=== PATIENT | male | born 1965 | race Caucasian/White ===

== ENCOUNTER 2018-08-25 10:14 | Day surgery (SDC) | payer BC, MEDICARE ==
[2018-08-22 09:59] VITALS: BMI 34.0
--- NOTE | 2018-08-25 11:08 | RAD ---
XR Cerv Sp Ap Lat STANDARD History: Pain. Cervical radiculopathy. Comparison: None Findings: ACDF hardware at C5-C7. There is partial backing out of the left C7 screw. Adequate osseous incorporation of the discectomy spacers. Mild circumferential disc osteophyte comple x at C4/C5. Graft no significant listhesis. No translation with flexion or extension. Impression: 1. Partial backing out of the left C7 screw with perihardware lucency. 2. Mild degenerative disc disease at C5/C6 without significant translation with flexion or extension.
--- NOTE | 2018-08-25 14:08 | MRI ---
CERVICAL SPINE MRI WITH AND WITHOUT CONTRAST: Date: 08/25/18 COMPARISON: None. HISTORY: Cervical radiculopathy, cervical pain, left neck and shoulder pain, history of cervical spin e surgery. TECHNIQUE: Multiplanar multisequence MR imaging of the cervical spine provided without contrast. FINDINGS: Sagittal STIR imaging demonstrates osseous edema centered at the facet joint on the left C4-5. Anteri or diskectomy and fusion hardware is present at C5-6/C6-7. No significant anterolisthesis or retrolisthesis is noted within the cervical spine. There is degenerative change at the atlantoaxial interspace. C2-3: No significant central canal or neural foraminal stenosis. C3-4: Minimal disc bulge with mild effacement of the ventral thecal sac and mild central canal stenos is. Bilateral facet and uncovertebral osteophyte formation with mild bilateral neural foraminal stenosis. C4-5: Minimal disc bulge with mild central canal stenosis. Bilateral facet and uncovertebral osteophy te formation, left greater than right. Moderate left and mild right neural foraminal stenosis. C5-6: No significant central canal or neural foraminal stenosis. C6-7: No significant central canal or neural foraminal stenosis. C7-T1: Mild bilateral facet hypertrophy with mild bilateral neural foraminal stenosis. No significant central canal stenosis. There is no focal area of abnormal signal intensity identified within the cervical cord. The postcontrast imaging demonstrates mild enhancement adjacent to the left facet joint at the C4-5 l evel. There is no abnormal enhancement involving the contents of the thecal sac or the intervertebral discs. IMPRESSION: Postoperative and degenerative changes within the cervical spine as detailed above. Findings include edematous change and enhancement centered at the left C4-5 facet joint, likely on the basis of inflammatory change. Transcribed Date/Time: 08/25/2018 2:21 PM
--- NOTE | 2018-08-25 14:32 | MRI ---
MRI LUMBAR SPINE WITH AND WITHOUT CONTRAST: DATE: 08/25/2018 HISTORY: 52-year-old male with "lumbar radiculopathy, lumbar stenosis without neurogenic claudication, and low back pain" Dr. Coelho notified Dr. Hernandez of the enhancement in the subarachnoid space by [place] [employer] secure [employer] I messaging at 1:45 PM on 08/25/2018; then by conventional text message (with abbreviated patient name bladder is) at 2:18 PM on 08/25/2018. COMPARISON: None available TECHNIQUE: Multiple sequences obtained in axial and sagittal planes, pre and post IV injection of gadolinium-bas ed contrast agent. FINDINGS: Vertebral body heights are maintained. No major spondylolisthesis. No major signal abnormality or abn ormal enhancement within the intervertebral disc spaces. Conus medullaris terminates at L1. Developmentally small caliber spinal canal due to congenitally short pedicles, exacerbated by lumbar spondylosis as described below. T12-L1:No additional findings. L1-2:Shallow, broad-based central and bilateral paracentral disc protrusion effaces ventral aspect of thecal sac. Mild to moderate central spinal canal stenosis. Posterior epidural fat pad. Moderate to severe thecal sac stenosis. Mild bilateral neural foraminal stenosis. L2-3:Disc space maintained. Mild to moderate bilateral neural foraminal stenosis. Mild to moderate ce ntral spinal canal stenosis. Moderate thecal sac stenosis. L3-4:Disc desiccation. Diffuse disc bulge. No high-grade disc space narrowing. Diffuse disc bulge plu s shallow, broad-based central and bilateral paracentral disc protrusion with posterior midline annular fissure. No enhancement of disc space. Bilateral moderate neural foraminal stenosis. Bilatera l moderate degenerative facet hypertrophy. Moderate to severe central and thecal sac stenosis. In addition to these degenerative changes, there is mild bone marrow edema of the bilateral pedicles. Bilateral facet joint effusions. Enhancement of perivertebral soft tissues around the bilateral facet complexes. Furthermore, there is abnormal intrathecal, subarachnoid enhancement of all of the cauda equina nerve roots at this level, but especially 2 ventral, right and left cauda equina nerve roots within the thecal sac. These to nerve root superior thickened. Enhancement of dural lining of sac. L4-5:Mild-moderate disc space narrowing. Diffuse disc bulge. Moderate right neural foraminal stenosis . Severe left neural foraminal stenosis. Lateral recess stenosis bilaterally. Mild central spinal canal stenosis. Mild to moderate thecal sac stenosis. L5-S1:Conjoined nerve root on one side. No central stenosis. Moderate disc space narrowing. Modic typ e II endplate changes. Prominent diffuse disc bulge. Moderate right neural foraminal stenosis. Severe left neural foraminal stenosis. IMPRESSION: 1) evidence for a focal arachnoiditis centered at the L3-4 level, with enhancement of cauda equina ne rve roots within the thecal sac. Infectious versus inflammatory. Etiology uncertain. Has there been recent needle injection in this vicinity? 2) developmentally small caliber spinal canal exacerbated by lumbar spondylosis. 3) multilevel high-grade neural foraminal stenosis, including severe on the left at L4-5 and L5-S1. 4) multilevel high-grade central spinal canal stenosis.
--- NOTE | 2018-08-25 15:59 | RAD ---
3 views lumbar spine: 08/25/2018 COMPARISON: None HISTORY: Radiculopathy, back pain, stenosis FINDINGS: Lateral neutral, flexion, and extension imaging provided. Neutral lateral examination demonstrates disc space narrowing with degenerative endplate change at L4 -5 and L5-S1. There is anterior osteophyte formation at L5-S1 and mild posterior osteophyte formation at L4-5. There is L4-5 and L5-S1 facet hypertrophy. There is an IVC filter present. Flexion imaging demonstrates no anterolisthesis or retrolisthesis. There is no anterolisthesis or ret rolisthesis on the extension imaging. IMPRESSION: Lower lumbar spine degenerative change.
== END 2018-08-25 16:08 | disposition home or self-care (01) ==
LOC: SDC/OP 10:14 → EDSTATUS 08-26 12:00
PROVIDERS: ATTEND Neurological Surgery
DX: M48.061 Spinal stenosis, lumbar region without neurogenic claudication (principal); M51.16 Intervertebral disc disorders with radiculopathy, lumbar region; M47.26 Other spondylosis with radiculopathy, lumbar region; M48.07 Spinal stenosis, lumbosacral region; M47.817 Spondylosis without myelopathy or radiculopathy, lumbosacral region; M48.02 Spinal stenosis, cervical region; M48.03 Spinal stenosis, cervicothoracic region; M50.122 Cervical disc disorder at C5-C6 level with radiculopathy; M47.22 Other spondylosis with radiculopathy, cervical region; J45.909 Unspecified asthma, uncomplicated; E78.5 Hyperlipidemia, unspecified; I10 Essential (primary) hypertension; M19.90 Unspecified osteoarthritis, unspecified site; Z98.890 Other specified postprocedural states; Z88.1 Allergy status to other antibiotic agents; Z79.01 Long term (current) use of anticoagulants; Z79.899 Other long term (current) drug therapy
CPT/HCPCS: 72040; 72100; 72156; 72158

== ENCOUNTER 2018-09-26 06:56 | Outpatient (CLI) | payer BC, MEDICARE ==
[2018-09-26 14:41] LABS: Hemoglobin 15.6 g/dL (14.0-18.0); Mean Corpuscular HGB CONC 33.3 g/dL (32.0-36.0); Mean Corpuscular Hemoglobin 28.1 pg (27.0-31.0); Mean Corpuscular Volume 84.4 fL (78.0-98.0); Mean Platelet Volume 7.8 fL (7.4-10.4); Platelet Count 177 thou/uL (130-400); RBC Distribution Width 12.9 % (11.5-14.5); Red Blood Cell (RBC) Count 5.54 mill/uL (4.70-6.10); White Blood Cell (WBC) Count 7.2 thou/uL (4.8-10.8)
[2018-09-26 14:48] LABS: INR-International Normal Ratio 1.5; PTT 33.9 SEC (22.9-36.1); Prothrombin Time 17.8 SEC (12.0-14.7)
[2018-09-26 15:06] LABS: Anion Gap 14 mmol/L (10-20); BUN (Urea Nitrogen) 8 mg/dL (8.9-20.6); Calc. Creatinine Clearance 0 mL/min (70-130); Calcium 9.1 mg/dL (7.8-10.44); Carbon Dioxide 28 mmol/L (22-29); Chloride 99 mmol/L (98-107); Estimated GFR-MDRD 78; Glucose 79 mg/dL (70-105); Potassium 3.6 mmol/L (3.5-5.1); Sodium 137 mmol/L (136-145)
== END 2018-09-26 06:57 | disposition home or self-care (01) ==
LOC: LABBT 06:56
PROVIDERS: ATTEND Neurological Surgery
DX: Z01.812 Encounter for preprocedural laboratory examination (principal); M48.061 Spinal stenosis, lumbar region without neurogenic claudication
CPT/HCPCS: 80048; 85027; 85610; 85730

== ENCOUNTER 2018-10-02 10:39 | Inpatient (IN) | payer BC, MEDICARE ==
[2018-09-26 13:19] VITALS: BMI 34.4
--- NOTE | 2018-10-01 17:09 | HP ---
HISTORY OF PRESENT ILLNESS: Mr. Douglas is a 52-year-old gentleman, who is back in our office after imaging. He continues to be debilitated by back and leg pains that are terrible with standing or extending the low back. There is pain mostly in the lower lumbar distribution, but there is some thigh pain as well. There is no severe weakness or numbness, but he cannot stand very long without having been bent forward. PAST MEDICAL HISTORY: Arthritis, asthma, allergies, history of blood clots, hyperlipidemia, chronic pain, genetic disease, headaches, and hypertension. ALLERGIES: FLUOROQUINOLONES. REVIEW OF SYSTEMS: A 10-point review of systems has been completed and negative other than stated in the above HPI. PAST SURGICAL HISTORY: Kidney stents, knee surgery, sinus surgery, lumbar surgery, cervical fusion, carpal tunnel, left knee, and right ankle. FAMILY HISTORY: Mother is alive. Siblings are alive. SOCIAL HISTORY: The patient is a nonsmoker. Denies other tobacco use. No alcohol or drug use. He is sexually active. PHYSICAL EXAMINATION: CONSTITUTIONAL: The patient is alert and oriented x3. Appears nontoxic. NECK: Soft, supple. No masses are noted. Range of motion is intact, nonpainful. NEUROLOGIC: Awake, alert, oriented x3. Memory, attention, fund of knowledge are normal. Cranial nerves grossly intact. Upper extremities 5/5 bilateral strength in deltoids, triceps, wrist extension, finger extension, finger intrinsics, left, 4+/5 biceps. Sensation decreased left middle finger compared to right. Reflexes symmetric. Spurling is negative. Lower extremities; 5/5 bilateral knee flexion, knee extension, dorsiflexion, plantar flexion, EHL, left. 4/+5 strength in hip flexion, bilateral L4/L5 radiculopathy. Negative single leg raise. Hip rotation normal bilaterally. Tender to palpate lumbar spine. Deep tendon reflexes 2+. No Babinski. No clonus. Gait and station, normal. IMAGING STUDIES: MRI, some cervical stenosis T3-T4, T4-T5 as well as prior fusion, moderate. Lumbar spine L1 to L2-L3 and severe L3-L4 stenosis enhancing nerve roots from the level down. Some scar tissue at L5-S1 foramina. ASSESSMENT AND PLAN: Lumbar stenosis, neurogenic claudication, lumbar radiculopathy. Dr. Hernandez has offered surgery, laminectomy L1 through L3, also left L5-S1 foramina for scar tissue. The patient states he understands the risks and is willing to proceed with surgery. Job ID: [id number]
[2018-10-02 12:06] LABS: INR-International Normal Ratio 0.9; PTT 27.4 SEC (22.9-36.1); Prothrombin Time 11.7 SEC (12.0-14.7)
[2018-10-02] MEDS ORDERED: Bupivacaine HCl 0.5%/Epinephrine 1:200,000/PF 30 ml Vial ONE (12:14)
[2018-10-02] MEDS ORDERED: Thrombin 5000 UNITS/5 ML VIAL ONE (12:15)
[2018-10-02] MEDS ORDERED: Sodium Chloride 0.9% 20 ML ONE (12:15)
[2018-10-02] MEDS ORDERED: Fentanyl 100 MCG/2 ML VIAL ONE ×2 (12:20→16:18)
[2018-10-02] MEDS ORDERED: Famotidine/PF 20 mg/2ml Vial ONE (12:20)
[2018-10-02] MEDS ORDERED: SUGAMMADEX SODIUM 500 MG/5 ML VIAL ONE (12:37)
[2018-10-02] MEDS ORDERED: Metoclopramide HCl 10 MG/2 ML VIAL ONE (13:55)
[2018-10-02] MEDS ORDERED: Ondansetron PF 4 MG/2 ML Vial ONE (13:55)
[2018-10-02] MEDS ORDERED: Dexamethasone 20 MG/5 ML VIAL ONE (13:55)
[2018-10-02] MEDS ORDERED: Lidocaine 1% PF 5 ML VIAL ONE (13:55)
[2018-10-02] MEDS ORDERED: Glycopyrrolate 0.2 MG/ML 5 ML SYRINGE ONE (13:55)
[2018-10-02] MEDS ORDERED: PROPOFOL 200 MG/20 ML VIAL ONE (13:55)
[2018-10-02] MEDS ORDERED: Ketorolac Tromethamine 30 MG/ML VIAL ONE (13:55)
[2018-10-02] MEDS ORDERED: Rocuronium Bromide 10 MG/ML (10ML VIAL) ONE (13:55)
[2018-10-02] MEDS ORDERED: Promethazine HCl 25 MG/ML VIAL IM PRN ×2 (17:12→17:30)
[2018-10-02] MEDS ORDERED: Milk Of Magnesia 30 ML UDCUP PO PRN (17:12)
[2018-10-02] MEDS ORDERED: diphenhydrAMINE 25 MG CAP PO PRN (17:12)
[2018-10-02] MEDS ORDERED: Promethazine 25 MG TAB PO PRN (17:12)
[2018-10-02] MEDS ORDERED: Bisacodyl 10 MG SUPP PR PRN (17:12)
[2018-10-02] MEDS ORDERED: Ondansetron PF 4 MG/2 ML Vial IVP PRN (17:12)
[2018-10-02] MEDS ORDERED: Morphine 4 MG/ML VIAL SLOW IVP PRN ×2 (17:12)
[2018-10-02] MEDS ORDERED: Acetaminophen/Codeine 30-300mg Tablet PO PRN (17:12)
[2018-10-02] MEDS ORDERED: Tamsulosin HCl 0.4 MG CAP PO PRN (17:12)
[2018-10-02] MEDS ORDERED: diphenhydrAMINE 50 MG/ML VIAL IVP PRN (17:12)
[2018-10-02] MEDS ORDERED: Acetaminophen 325 MG TAB PO PRN (17:12)
[2018-10-02] MEDS ORDERED: Diazepam 2 MG TAB PO PRN (17:20)
[2018-10-02] MEDS ORDERED: Famotidine 20 MG TAB PO PRN (17:20)
[2018-10-02] MEDS ORDERED: CEFAZOLIN 1 GM VIAL ONE ×2 (17:22→17:23)
[2018-10-02] MEDS ORDERED: Meperidine HCl/PF 25 MG/ML VIAL SLOW IVP PRN (17:30)
[2018-10-02] MEDS ORDERED: Promethazine HCl 25 MG/ML VIAL SLOW IVP PRN (17:30)
[2018-10-02] MEDS ORDERED: Ondansetron HCl/PF 4 MG/2 ML Vial IVP PRN (17:30)
[2018-10-02] MEDS ORDERED: PACU-Morphine 4MG/ML VIAL SLOW IVP PRN (17:30)
--- NOTE | 2018-10-02 17:43 | OP ---
DATE OF PROCEDURE: 10/02/2018 HUMAN RESOURCES OPERATIONS COORDINATOR: Mera Sawyer PA-C PREOPERATIVE INDICATION: Multilevel lumbar stenosis with severe neurogenic claudication, prior L5-S1 surgery with lateral recess stenosis and foraminal disease at the lumbosacral interspace. POSTOPERATIVE DIAGNOSES: Multilevel lumbar stenosis with severe neurogenic claudication, prior L5-S1 surgery with lateral recess stenosis and foraminal disease at the lumbosacral interspace. OPERATIVE PROCEDURES: Reopening lumbar incision, laminectomy, medial facetectomy, and foraminotomy at L1-L2, L2-L3, and L3-L4, redo laminectomy, medial facetectomy, foraminotomy, bilateral L5-S1 with operating microscope. PREOPERATIVE MEDICATIONS: Ancef 2 g IV. DRAIN NUMBER: Two. DRAIN TYPE: 10-Syriac Cristopher. DESCRIPTION OF PROCEDURE: The patient was brought to the operating room. General endotracheal anesthesia was induced. The patient was positioned prone on the operating table with the chest and hips supported by gel-filled chest rolls. We took a lateral fluoro radiograph to plan our incision. The lumbar skin was sterilely prepped and draped. We opened with a 10 blade knife and controlled bleeding with bipolar and monopolar cautery. We used monopolar cautery to dissect through subcutaneous tissues and scar tissue to the thoracodorsal fascia. We incised the fascia in the midline and reflected paraspinal muscles off the spinous processes and lamina from L1 through S1. A lateral fluoro radiograph confirmed the levels upon, which we were operating. We then used an Adson rongeur and a high-speed drill to remove the spinous processes and thin the lamina from L1 through L4. Using a Kerrison rongeur, we fashioned a laminectomy down the midline. We widened our laminectomy defect by performing medial facetectomies at each of the interspaces. We performed foraminotomies over the exiting nerve roots. Once a Cheung ball probe could pass through the lateral recess and out the foramen with L1, L2, L3, and L4 nerve roots. Then, we turned our attention to the lumbosacral interspace. Here, we placed a self-retaining retractor and dissected carefully the scar tissue off the lamina of L5 and S1. The operating microscope was brought into the field. Under microscopic magnification using microsurgical techniques, we continued to loosen scar tissue from the undersurface of the lamina. We began with bilaterally attempting partial hemilaminectomy and medial facetectomies, but this would not give us access to the foramina themselves due to the angle of approach. We had to remove the spinous process of L5 in the inferior 75% of the lamina of L5 and the superior portion of the sacrum. With this opening, we could perform medial facetectomies on both sides to ensure the traversing S1 nerve roots were free. We then paid attention to the L5 nerve roots. We carefully performed foraminotomies over these nerve root until a Cheung ball probe could leave the spine with the nerves and no impingement. We irrigated copiously with bacitracin irrigation. We controlled bleeding with gentle bipolar cautery. The patient has factor V Leiden deficiency and would need to be placed on Lovenox postop, so we left two drains in place. One was tunneled superiorly and one inferiorly through separate stab incisions. We applied vancomycin powder at the wound. We closed the wound in anatomical layers over the drains. A sterile dressing was applied. This was a clean case, no contamination. Job ID: [id number]
[2018-10-02] MEDS ORDERED: Promethazine HCl 25 MG/ML VIAL ONE (18:26)
[2018-10-02] MEDS: Sodium Chloride 0.9% 1,000 ML IV SCH (19:11)
[2018-10-02] MEDS: CEFAZOLIN 2 GM in Premix Bag 1 BAG IVPB SCH (20:16)
[2018-10-02] MEDS: Zolpidem Tartrate 5 MG TAB PO SCH (20:17)
[2018-10-02] MEDS: Atorvastatin Calcium 40 MG TAB PO SCH (20:19)
[2018-10-02] MEDS: Acetaminophen/Codeine 30-300mg Tablet PO PRN (21:43)
--- NOTE | 2018-10-02 23:44 | ULT ---
EXAM: Bilateral lower extremity venous Doppler PROVIDED CLINICAL HISTORY: History of DVT FINDINGS: Grayscale and color Doppler sonography with spectral analysis was performed of the common femoral, fe moral, popliteal, posterior tibial, greater saphenous and profunda femoral veins bilaterally. There is intraluminal echogenicity and partial noncompressibility involving the right popliteal and posteri or tibial veins compatible with partially occlusive thrombus. The evaluated venous structures demonstrate an otherwise normal sonographic appearance. IMPRESSION: Positive for deep venous thrombosis involving the right popliteal and posterior tibial veins..
[2018-10-03] MEDS: Acetaminophen/Codeine 30-300mg Tablet PO PRN ×4 (02:40→20:26)
--- NOTE | 2018-10-03 04:01 | CON ---
DATE OF CONSULTATION: REASON FOR CONSULTATION: Medical management. HISTORY OF PRESENT ILLNESS: Mr. 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 Hernandez. The patient underwent successful L1-L2, L2-L3, L3-L4, and L5-S1 laminectomy today. He is seen postoperatively up on the floor. The patient has no complaints at this time. His pain is well controlled. He denies any nausea or vomiting. His appetite is good. Reports no chills or fever symptoms. No chest pain or shortness of breath. REVIEW OF SYSTEMS: A 10-point review of systems performed and is negative. 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 PAST SURGICAL HISTORY: IVC filter placement, L5-S1 laminectomy in the past, cervical fusion, carpal tunnel release, orthopedic procedures on left knee and right ankle. FAMILY HISTORY: Noncontributory. SOCIAL HISTORY: The patient denies any smoking, alcohol, or tobacco abuse. He lives outside of [place] with his . They have grown children and 3 grandchildren. ALLERGIES: FLUOROQUINOLONES. HOME MEDICATIONS: 1. Atorvastatin 40 mg tablet one tablet p.o. at bedtime. 2. Diazepam 2 mg tablet, one tablet p.o. daily. 3. Esomeprazole 40 mg p.o. at bedtime. 4. Lunesta 3 mg tablet, one tablet p.o. at bedtime. 5. Losartan/hydrochlorothiazide 100/25 mg one tablet daily. 6. Coumadin 5 mg tablet as directed. 7. Has been on Lovenox bridge for the past week. PHYSICAL EXAMINATION: VITAL SIGNS: Blood pressure 136/86, pulse is 82, respirations are 18, O2 saturation is 99% on room air, temperature 98.6. GENERAL: The patient is a moderately obese male, resting comfortably in bed, in no acute distress. HEENT: Head is atraumatic and normocephalic. Mucous membranes are moist. NECK: Trachea is midline. No JVD. CV: S1 and S2. Regular rate and rhythm. No appreciable murmurs, rubs, or gallops. LUNGS: Regular respiratory rate and pattern. Clear to auscultation bilaterally. ABDOMEN: Positive bowel sounds. Obese and nontender. EXTREMITIES: No edema. MUSCULOSKELETAL: Lumbar surgical incision is dressed. Drains are in place showing serosanguineous fluid. NEUROLOGIC: Cranial nerves II through XII grossly intact. The patient is nonfocal. LABORATORY DATA: White blood cell count 7.2, hemoglobin 15.6, hematocrit 46.8, platelets 177. INR was 0.9. Sodium 137, potassium 3.6, BUN 8, creatinine 1.01, calcium 9.1. ASSESSMENT: 1. Lumbar stenosis, status post laminectomy, L1-L2, L2- L3, L3-L4, and redo laminectomy of L5-S1 with Dr. Hernandez today. 2. Hypercoagulable state secondary to Factor II and Factor V Leiden deficiency. 3. History of deep venous thrombosis and IVC filter secondary to above. 4. Hypertension. 5. Hyperlipidemia. PLAN: Prophylactic antibiotic coverage per Dr. Hernandez's team. We will continue pain control and antiemetics as needed. Continue home medications including his antihypertensives and statin. The plan is for restarting Lovenox tomorrow morning. We will need to monitor him closely for any sign of thrombosis. Early ambulation and continue physical therapy. We will follow along with you. Thank you for the consultation. Job ID: [id number]
[2018-10-03] MEDS: CEFAZOLIN 2 GM in Premix Bag 1 BAG IVPB SCH ×2 (04:44→19:45)
[2018-10-03] MEDS: Sodium Chloride 0.9% 1,000 ML IV SCH ×2 (07:56→17:59)
[2018-10-03] MEDS: Losartan/Hydrochlorothiazide 100 mg/25 mg Tablet PO SCH (09:12)
[2018-10-03] MEDS: Enoxaparin Sodium 40 MG/0.4 ML SYRINGE SC SCH (09:15)
[2018-10-03] MEDS: tiZANidine HCl 4 MG TAB PO PRN ×2 (10:04→16:14)
--- NOTE | 2018-10-03 11:28 | PDOC.PN ---
- Subjective Encounter Start Date: 10/03/18 Encounter Start Time: 07:20 -: old records requested/rev pt is doing overall fine, Patient seen and examined. No overnight events - Objective MAR Reviewed: Yes Vital Signs & Weight: Vital Signs (12 hours) Temp Pulse Resp BP Pulse Ox 10/03/18 10:40 98.6 F 71 18 121/65 96 10/03/18 07:54 98.3 F 60 16 119/77 96 10/03/18 04:00 98.6 F 62 14 108/67 95 10/02/18 23:38 98 F 79 20 104/50 L 98 Weight Weight 268 lb I&O: 10/02/18 10/03/18 10/04/18 06:59 06:59 06:59 Intake Total 1425 Output Total 1999 Balance -575 Radiology Reviewed by me: Yes (US leg noted) Phys Exam - Physical Examination Constitutional: NAD HEENT: PERRLA, moist MMs, sclera anicteric Neck: no JVD, supple Respiratory: no wheezing, no rales, no rhonchi Cardiovascular: RRR, no significant murmur, no rub Gastrointestinal: soft, non-tender, no distention, positive bowel sounds Musculoskeletal: no edema, pulses present Neurological: non-focal, normal sensation, moves all 4 limbs Lymphatic: no nodes Psychiatric: normal affect, A&O x 3 Skin: no rash, normal turgor Dx/Plan (1) Deep vein thrombosis (DVT) of popliteal vein of right lower extremity Code(s): I82.431 - ACUTE EMBOLISM AND THROMBOSIS OF RIGHT POPLITEAL VEIN Status: Acute (2) S/P lumbar laminectomy Code(s): Z98.890 - OTHER SPECIFIED POSTPROCEDURAL STATES Status: Acute (3) Dyslipidemia Code(s): E78.5 - HYPERLIPIDEMIA, UNSPECIFIED Status: Chronic (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 - HEREDITARY DEFICIENCY OF OTHER CLOTTING FACTORS Status: Chronic (5) Factor V deficiency Code(s): D68.2 - HEREDITARY DEFICIENCY OF OTHER CLOTTING FACTORS Status: Chronic (6) GERD (gastroesophageal reflux disease) Code(s): K21.9 - GASTRO-ESOPHAGEAL REFLUX DISEASE WITHOUT ESOPHAGITIS Status: Chronic (7) Hypertension Code(s): I10 - ESSENTIAL (PRIMARY) HYPERTENSION Status: Chronic (8) Lumbar stenosis with neurogenic claudication Code(s): M48.062 - SPINAL STENOSIS, LUMBAR REGION WITH NEUROGENIC CLAUDICATION Status: Chronic (9) Obesity (BMI 30.0-34.9) Code(s): E66.9 - OBESITY, UNSPECIFIED Status: Chronic (10) Presence of inferior vena cava filter Code(s): Z95.828 - PRESENCE OF OTHER VASCULAR IMPLANTS AND GRAFTS Status: Chronic - Plan cont current plan of care, plan discussed w/ family * pt has distal DVT in right leg, per pt he had DVT in past, he is off lovenox since saturday for surgery, today lovenox low dose started, given lumbar spine surgery will defer to neurosurgeon when they are comfortable with full dose of lovenox and warfarin until INR therapeutic. * medication reviewed as below * symptomatic treatment * discussed with bedside Review of Systems - Review of Systems ENT: negative: Ear Pain, Ear Discharge, Nose Pain, Nose Discharge, Nose Congestion, Mouth Pain, Mouth Swelling, Throat Pain, Throat Swelling, Other Respiratory: negative: Cough, Dry, Shortness of Breath, Hemoptysis, SOB with Excertion, Pleuritic Pain, Sputum, Wheezing Cardiovascular: negative: chest pain, palpitations, orthopnea, paroxysmal nocturnal dyspnea, edema, light headedness, other Gastrointestinal: negative: Nausea, Vomiting, Abdominal Pain, Diarrhea, Constipation, Melena, Hematochezia, Other Genitourinary: negative: Dysuria, Frequency, Incontinence, Hematuria, Retention , Other Musculoskeletal: negative: Neck Pain, Shoulder Pain, Arm Pain, Back Pain, Hand Pain, Leg Pain, Foot Pain, Other - Medications/Allergies Allergies/Adverse Reactions: Allergies Allergy/AdvReac Type Severity Reaction Status Date / Time Fluoroquinolones Allergy Severe Uncoded 09/26/18 13:19 Medications: Current Medications Acetaminophen (Tylenol) 650 mg PO Q4H PRN PRN Reason: Headache/Fever or Pain Acetaminophen/Codeine Phosphate (Tylenol #3) 1 tab PO Q3H PRN PRN Reason: Mild Pain (1-3) Acetaminophen/Codeine Phosphate (Tylenol #3) 2 tab PO Q3H PRN PRN Reason: Moderate Pain (4-6) Last Admin: 10/03/18 09:14 Dose: 2 tab Al Hydroxide/Mg Hydroxide (Maalox) 30 ml PO Q4H PRN PRN Reason: Indigestion Atorvastatin Calcium (Lipitor) 40 mg PO HS PENDING SALE TO [facility] Last Admin: 10/02/18 20:19 Dose: 40 mg Bisacodyl (Dulcolax) 10 mg KS Q12H PRN PRN Reason: Constipation Diazepam (Valium) 2 mg PO DAILY PRN PRN Reason: vertigo Diphenhydramine HCl (Benadryl) 25 mg IVP Q6H PRN PRN Reason: Itching Diphenhydramine HCl (Benadryl) 25 mg PO Q6H PRN PRN Reason: Itching Enoxaparin Sodium (Lovenox) 40 mg SC DAILY PENDING SALE TO [facility] Last Admin: 10/03/18 09:15 Dose: 40 mg Famotidine (Pepcid) 20 mg PO HS PRN PRN Reason: reflux HCTZ/Losartan Potassium (Hyzaar 100/25) 1 tab PO DAILY PENDING SALE TO [facility] Last Admin: 10/03/18 09:12 Dose: 1 tab Cefazolin Sodium/Dextrose 2 gm (/ Device) 50 mls @ 100 mls/hr IVPB 0400,1200, 2000 PENDING SALE TO [facility] Last Admin: 10/03/18 04:44 Dose: 50 mls Sodium Chloride (Normal Saline 0.9%) 1,000 mls @ 75 mls/hr IV .[id number] PENDING SALE TO [facility] Last Admin: 10/03/18 07:56 Dose: Not Given Magnesium Hydroxide (Milk Of Magnesium) 30 ml PO Q12H PRN PRN Reason: Constipation Morphine Sulfate (Morphine) 2 mg SLOW IVP Q1H PRN PRN Reason: Moderate Breakthrough Pain Morphine Sulfate (Morphine) 4 mg SLOW IVP Q1H PRN PRN Reason: Severe Breakthrough Pain Ondansetron HCl (Zofran) 4 mg IVP DAILY PRN PRN Reason: Nausea/Vomiting Pantoprazole Sodium (Protonix) 40 mg PO HS PENDING SALE TO [facility] Last Admin: 10/02/18 20:19 Dose: 40 mg Promethazine HCl (Phenergan) 12.5 mg PO Q4H PRN PRN Reason: Nausea/Vomiting Promethazine HCl (Phenergan) 12.5 mg IM Q4H PRN PRN Reason: Nausea/Vomiting Sodium Chloride (Flush - Normal Saline) 10 ml IVF PRN PRN PRN Reason: Saline Flush Tamsulosin HCl (Flomax) 0.4 mg PO 0600 PRN PRN Reason: urnary retention Tizanidine HCl (Zanaflex) 4 mg PO Q6H PRN PRN Reason: Muscle Spasm Last Admin: 10/03/18 10:04 Dose: 4 mg Zolpidem Tartrate (Ambien) 10 mg PO HS PENDING SALE TO [facility] Last Admin: 10/02/18 20:17 Dose: 10 mg
--- NOTE | 2018-10-03 11:43 | PRG ---
DATE OF SERVICE: 10/03/2018 I saw Axel Douglas in his hospital room this morning. He is one day out from decompressive laminectomy of the lumbar spine. Mr. Douglas has chronic DVTs, for which he has IVC filter, and he has been on Coumadin. He bridged with Lovenox until surgery. An ultrasound yesterday showed DVT, but I think these are chronic. Today, Mr. Douglas feels well. There is no radiating nerve pain, pain down the legs. He thinks he has improved significantly since the operation was done. Overnight, there are no fevers recorded. There is significant drain output, especially from the left-sided drain. Our plan is to leave the drains in while we restart the Lovenox. If our colleagues in Radiology feel the DVTs are chronic, then we will begin mobilization. I believe he has an IVC filter in anyway and so I think mobilization is quite reasonable. If the drain output tapers off in spite of Lovenox treatment until by tomorrow, we will consider removing one or both of them. He can be discharged when we are satisfied that he is returning to his prophylactic dose Lovenox without hemorrhagic complications. Job ID: [id number]
[2018-10-03] MEDS: CEFAZOLIN 2 GM in Sodium Chloride 0.9% 100 ML IVPB SCH ×2 (14:20→20:26)
[2018-10-03] MEDS: Atorvastatin Calcium 40 MG TAB PO SCH (20:26)
[2018-10-03] MEDS: Zolpidem Tartrate 5 MG TAB PO SCH (20:27)
[2018-10-04] MEDS: tiZANidine HCl 4 MG TAB PO PRN ×4 (00:16→21:14)
[2018-10-04] MEDS: Acetaminophen/Codeine 30-300mg Tablet PO PRN ×6 (00:18→21:14)
[2018-10-04] MEDS: CEFAZOLIN 2 GM in Sodium Chloride 0.9% 100 ML IVPB SCH ×3 (05:59→21:15)
--- NOTE | 2018-10-04 07:35 | PRG ---
DATE OF SERVICE: 10/04/2018 I saw Mr. Douglas in his hospital room this morning. He is 2 days out from lumbar laminectomy. He has Factor V Leiden deficiency and so we restart on Lovenox. We left drains indwelling while we restarting the Lovenox. The right drain is tapered off almost completely and the left drain still has some output, but it is tapering nicely. We will remove the right drain this morning. If by lunch, the left drain continues to taper off then he can be discharged this afternoon. Otherwise, we will anticipate discharge tomorrow. I would like prophylactic dose Lovenox for 2 weeks and then restart his anticoagulation. Job ID: [id number]
[2018-10-04] MEDS: Sodium Chloride 0.9% 1,000 ML IV SCH ×2 (09:22→22:00)
[2018-10-04] MEDS: Losartan/Hydrochlorothiazide 100 mg/25 mg Tablet PO SCH (09:23)
[2018-10-04] MEDS: Enoxaparin Sodium 40 MG/0.4 ML SYRINGE SC SCH (09:23)
--- NOTE | 2018-10-04 10:56 | PDOC.PN ---
- Subjective Encounter Start Date: 10/04/18 Encounter Start Time: 07:30 one drain removed, another drain still there, pt's pain controlled, Patient seen and examined. No new complaints. No overnight events - Objective MAR Reviewed: Yes Vital Signs & Weight: Vital Signs (12 hours) Temp Pulse Resp BP Pulse Ox 10/04/18 07:36 97.9 F 62 18 101/60 96 10/04/18 05:23 98.6 F 73 18 102/64 96 Weight Weight 268 lb I&O: 10/03/18 10/04/18 10/05/18 06:59 06:59 06:59 Intake Total 1425 3890 Output Total 1999 248 Balance -575 3642 Phys Exam - Physical Examination Constitutional: NAD HEENT: PERRLA, moist MMs, sclera anicteric Neck: no JVD, supple Respiratory: no wheezing, no rales, no rhonchi Cardiovascular: RRR, no significant murmur, no rub Gastrointestinal: soft, non-tender, no distention, positive bowel sounds drain in back+ Musculoskeletal: no edema, pulses present Neurological: non-focal, normal sensation, moves all 4 limbs Lymphatic: no nodes Psychiatric: normal affect, A&O x 3 Skin: no rash, normal turgor Dx/Plan (1) Deep vein thrombosis (DVT) of popliteal vein of right lower extremity Code(s): I82.431 - ACUTE EMBOLISM AND THROMBOSIS OF RIGHT POPLITEAL VEIN Status: Acute (2) S/P lumbar laminectomy Code(s): Z98.890 - OTHER SPECIFIED POSTPROCEDURAL STATES Status: Acute (3) Dyslipidemia Code(s): E78.5 - HYPERLIPIDEMIA, UNSPECIFIED Status: Chronic (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 - HEREDITARY DEFICIENCY OF OTHER CLOTTING FACTORS Status: Chronic (5) Factor V deficiency Code(s): D68.2 - HEREDITARY DEFICIENCY OF OTHER CLOTTING FACTORS Status: Chronic (6) GERD (gastroesophageal reflux disease) Code(s): K21.9 - GASTRO-ESOPHAGEAL REFLUX DISEASE WITHOUT ESOPHAGITIS Status: Chronic (7) Hypertension Code(s): I10 - ESSENTIAL (PRIMARY) HYPERTENSION Status: Chronic (8) Lumbar stenosis with neurogenic claudication Code(s): M48.062 - SPINAL STENOSIS, LUMBAR REGION WITH NEUROGENIC CLAUDICATION Status: Chronic (9) Obesity (BMI 30.0-34.9) Code(s): E66.9 - OBESITY, UNSPECIFIED Status: Chronic (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 Review of Systems - Review of Systems ENT: negative: Ear Pain, Ear Discharge, Nose Pain, Nose Discharge, Nose Congestion, Mouth Pain, Mouth Swelling, Throat Pain, Throat Swelling, Other Respiratory: negative: Cough, Dry, Shortness of Breath, Hemoptysis, SOB with Excertion, Pleuritic Pain, Sputum, Wheezing Cardiovascular: negative: chest pain, palpitations, orthopnea, paroxysmal nocturnal dyspnea, edema, light headedness, other Gastrointestinal: negative: Nausea, Vomiting, Abdominal Pain, Diarrhea, Constipation, Melena, Hematochezia, Other Genitourinary: negative: Dysuria, Frequency, Incontinence, Hematuria, Retention , Other Musculoskeletal: negative: Neck Pain, Shoulder Pain, Arm Pain, Back Pain, Hand Pain, Leg Pain, Foot Pain, Other - Medications/Allergies Allergies/Adverse Reactions: Allergies Allergy/AdvReac Type Severity Reaction Status Date / Time Fluoroquinolones Allergy Severe Uncoded 09/26/18 13:19 Medications: Current Medications Acetaminophen (Tylenol) 650 mg PO Q4H PRN PRN Reason: Headache/Fever or Pain Acetaminophen/Codeine Phosphate (Tylenol #3) 1 tab PO Q3H PRN PRN Reason: Mild Pain (1-3) Acetaminophen/Codeine Phosphate (Tylenol #3) 2 tab PO Q3H PRN PRN Reason: Moderate Pain (4-6) Last Admin: 10/04/18 09:57 Dose: 2 tab Al Hydroxide/Mg Hydroxide (Maalox) 30 ml PO Q4H PRN PRN Reason: Indigestion Atorvastatin Calcium (Lipitor) 40 mg PO HS [facility] Last Admin: 10/03/18 20:26 Dose: 40 mg Bisacodyl (Dulcolax) 10 mg SC Q12H PRN PRN Reason: Constipation Diazepam (Valium) 2 mg PO DAILY PRN PRN Reason: vertigo Diphenhydramine HCl (Benadryl) 25 mg IVP Q6H PRN PRN Reason: Itching Diphenhydramine HCl (Benadryl) 25 mg PO Q6H PRN PRN Reason: Itching Enoxaparin Sodium (Lovenox) 40 mg SC DAILY [facility] Last Admin: 10/04/18 09:23 Dose: 40 mg Famotidine (Pepcid) 20 mg PO HS PRN PRN Reason: reflux HCTZ/Losartan Potassium (Hyzaar 100/25) 1 tab PO DAILY [facility] Last Admin: 10/04/18 09:23 Dose: Not Given Sodium Chloride (Normal Saline 0.9%) 1,000 mls @ 75 mls/hr IV .[id number] [facility] Last Admin: 10/04/18 09:22 Dose: Not Given Cefazolin Sodium 2 gm/ Sodium (Chloride) 100 mls @ 200 mls/hr IVPB 0500,1300, 2100 [facility] Last Admin: 10/04/18 05:59 Dose: 100 mls Magnesium Hydroxide (Milk Of Magnesium) 30 ml PO Q12H PRN PRN Reason: Constipation Morphine Sulfate (Morphine) 2 mg SLOW IVP Q1H PRN PRN Reason: Moderate Breakthrough Pain Morphine Sulfate (Morphine) 4 mg SLOW IVP Q1H PRN PRN Reason: Severe Breakthrough Pain Ondansetron HCl (Zofran) 4 mg IVP DAILY PRN PRN Reason: Nausea/Vomiting Pantoprazole Sodium (Protonix) 40 mg PO [facility] Last Admin: 10/03/18 20:26 Dose: 40 mg Promethazine HCl (Phenergan) 12.5 mg PO Q4H PRN PRN Reason: Nausea/Vomiting Promethazine HCl (Phenergan) 12.5 mg IM Q4H PRN PRN Reason: Nausea/Vomiting Sodium Chloride (Flush - Normal Saline) 10 ml IVF PRN PRN PRN Reason: Saline Flush Last Admin: 10/03/18 14:21 Dose: 10 ml Tamsulosin HCl (Flomax) 0.4 mg PO 0600 PRN PRN Reason: urnary retention Tizanidine HCl (Zanaflex) 4 mg PO Q6H PRN PRN Reason: Muscle Spasm Last Admin: 10/04/18 06:15 Dose: 4 mg Zolpidem Tartrate (Ambien) 10 mg PO [facility] Last Admin: 10/03/18 20:27 Dose: Not Given
[2018-10-04] MEDS: Mag-Al 1200 mg/1200 mg/30 ML UDCUP PO PRN (17:00)
[2018-10-04] MEDS: Atorvastatin Calcium 40 MG TAB PO SCH (21:15)
[2018-10-04] MEDS: Zolpidem Tartrate 5 MG TAB PO SCH (21:15)
[2018-10-05] MEDS: Mag-Al 1200 mg/1200 mg/30 ML UDCUP PO PRN (00:02)
[2018-10-05] MEDS: Acetaminophen/Codeine 30-300mg Tablet PO PRN ×2 (02:23→06:26)
[2018-10-05] MEDS: tiZANidine HCl 4 MG TAB PO PRN ×2 (02:23→08:38)
[2018-10-05] MEDS: CEFAZOLIN 2 GM in Sodium Chloride 0.9% 100 ML IVPB SCH ×2 (05:55→06:25)
[2018-10-05] MEDS ORDERED: CEFAZOLIN 1 GM VIAL ONE (06:22)
[2018-10-05] MEDS ORDERED: CEFAZOLIN 2 GM, Admixture Fee 1 EACH in Sodium Chloride 0.9% 100 ML IVPB SCH ×2 (06:30→13:00)
[2018-10-05] MEDS: Enoxaparin Sodium 40 MG/0.4 ML SYRINGE SC SCH (08:38)
[2018-10-05] MEDS: Losartan/Hydrochlorothiazide 100 mg/25 mg Tablet PO SCH (08:40)
--- NOTE | 2018-10-05 09:22 | PRG ---
DATE OF SERVICE: 10/05/2018 Mr. Douglas is 3 days out from a redo laminectomy and due to his clotting status had to continue Lovenox following surgery. Drains were left in until they tapered. Last night, they tapered to an acceptable range about 5 mL an hour. We removed the drain this morning. The patient has been discharged from physical therapy. He is walking frequently. He denies any radicular symptoms. He feels better than he has in quite some time. We are going to discharge the patient home. Followup has been arranged and instructions for care have been given. Job ID: [id number]
[2018-10-05 09:38] VITALS: BP 106/68; TEMP 97.8
--- NOTE | 2018-10-05 09:48 | PRG ---
DATE OF SERVICE: 10/05/2018 Mr. Douglas had his right drain removed and output tapered off nicely. His anterior thigh discomfort is waning significantly and he feels better and better. He has been walking around the hallways and he thinks he is ready for discharge. We will use Lovenox on a prophylactic dose scale for the next 11 days, and a week after this coming , he is going to restart his anticoagulation. He will see us for a wound check and start physical therapy thereafter. Job ID: [id number]
== END 2018-10-05 10:50 | disposition home or self-care (01) | DRG 516 ==
LOC: SDC 10:39 → OBSVTOIN 17:10 → SJJU 17:10
PROVIDERS: ADMIT Neurological Surgery; ATTEND Neurological Surgery
PROC: 01NB0ZZ Release Lumbar Nerve, Open Approach (ICD-10-PCS; principal; 2018-10-02)
PROC: 01NR0ZZ Release Sacral Nerve, Open Approach (ICD-10-PCS; 2018-10-02)
DX: M48.062 Spinal stenosis, lumbar region with neurogenic claudication (principal); D68.2 Hereditary deficiency of other clotting factors; I82.431 Acute embolism and thrombosis of right popliteal vein; M54.16 Radiculopathy, lumbar region; M19.90 Unspecified osteoarthritis, unspecified site; J45.909 Unspecified asthma, uncomplicated; E78.5 Hyperlipidemia, unspecified; G89.29 Other chronic pain; I10 Essential (primary) hypertension; K21.9 Gastro-esophageal reflux disease without esophagitis; E66.9 Obesity, unspecified; Z88.8 Allergy status to other drugs, medicaments and biological substances; Z98.1 Arthrodesis status; Z79.01 Long term (current) use of anticoagulants; Z95.828 Presence of other vascular implants and grafts; Z68.34 Body mass index [BMI] 34.0-34.9, adult
CPT/HCPCS: 36415; 76000; 85610; 85730; 93970; J0131; J0670; J0690; J1100; J1650; J1885; J2001; J2405; J2550; J2704; J2765; J3010; J3370; J3490; S0028

== ENCOUNTER 2019-04-27 15:32 | Outpatient (CLI) | payer BC, MEDICARE ==
--- NOTE | 2019-04-27 15:53 | RAD ---
CERVICAL SPINE SIX VIEWS: HISTORY: Cervical fusion. Neck pain. MRI shows abnormality at C5-C6. FINDINGS: On the AP projection, no malalignment. On the open-mouth projection, lateral masses of C1 and C2 articulate appropriately. Intact odontoid p rocess. No prevertebral soft tissue swelling. Predental space is normal. No evidence of a cervical spine frac ture. There is an anterior fusion plate with transvertebral body screw at C5, C6 and C7. The transvertebral body screw at C7 appears to have backed out and is not flush with the associated plate s.. Disc prosthesis at C5-C6 and C6-C7. In the neutral position, there is 2.3 mm anterolisthesis of C3-4 upon C5. Upon flexion there is 3 mm anterolisthesis of C3-C4 upon C5. Upon extension, anterolist hesis resolves. IMPRESSION: 1. Postsurgical changes and spondylolisthesis as above. 2. The transvertebral screw at C7 does not appear to be flush with the plate, suggesting loosening. Transcribed Date/Time: 04/27/2019 4:29 PM
== END 2019-04-27 15:33 | disposition home or self-care (01) ==
LOC: TBSIIMAG 15:32
PROVIDERS: ATTEND Neurological Surgery
DX: M54.12 Radiculopathy, cervical region (principal); M43.12 Spondylolisthesis, cervical region; Z98.1 Arthrodesis status
CPT/HCPCS: 72050